=== PATIENT | male | born 1980 | race Caucasian/White ===

== ENCOUNTER 2019-07-22 11:48 | Inpatient (IN) | payer OTHER, SELFPAY ==
[2019-07-10 13:55] VITALS: BMI 41.1
[2019-07-22] VITALS (19 sets, daily range): BP systolic 102–161; BP diastolic 56–106; PULSE 9–109; RESP 8–20; TEMP 35.6–36.6; O2SAT 85–100; BMI 40.8
--- NOTE | 2019-07-22 | DI.RAD.S_ITS ---
PROCEDURE: XR CERVICAL SPINE 2V OR 3V INDICATIONS: C4-5, C5-6, C6-7 ACDF WITH ANTERIOR INSTRUMENTATION TECHNIQUE: 3 operative view(s) of the cervical spine were acquired. COMPARISON: None. FINDINGS: Preoperative films demonstrate performance of ACDF at C4-C7 with anterior plate and screw fixation and interbody bone graft material placement. IMPRESSION: ACDF at C4-C7 Dictated by: Adan Bates M.D. on 07/22/2019 at 17:00 Approved by: Adan Bates M.D. on 07/22/2019 at 17:01
--- NOTE | 2019-07-22 12:37 | PM.PREOP ---
Pre-operative Note Interval Note History & Physical reviewed/Exam performed by Physician: Yes Changes to H&P: No
[2019-07-22] MEDS: LACTATED RINGERS 1,000 ML 42 ML IV ×2 (12:51→15:22)
[2019-07-22] MEDS: CEFAZOLIN 2 GM/100 ML FROZ.PIGGY IV ×2 (13:10→20:53)
--- NOTE | 2019-07-22 14:03 | SUR.OPER ---
Supine, head on gel donut. Arms padded with gel pads, tucked at sides, towel roll under shoulders. Safety belt at thigh. Legs uncrossed.
[2019-07-22] MEDS: ACETAMINOPHEN IV 1,000 MG/100 ML VIAL 400 MG IV (15:17)
[2019-07-22] MEDS: BUPIVACAINE 0.25% W/ EPI 30 ML VIAL INJ (16:08)
--- NOTE | 2019-07-22 17:01 | P.OP_ITS ---
Operative Date/Time/Diagnoses Date of procedure: 07/22/19 Time of procedure: 14:01 Pre-op diagnosis: 1. C4-5, C5-6,C6-7 spinal stenosis 2. C4-5, C5-6, C6-7 spondylosis with radiculopathy Post-op diagnosis: same Procedure & Clinicians Procedure: 1. C4-5 C5-6 C6-7 anterior cervical diskectomy and fusion 2. C4-5 C5-6 C6-7 anterior interbody cage placement 3. C4-5 C5-6 C6-7 anterior instrumentation with plate and screw placement in C4-C5-C6 and C7 vertebrae 4. Utilization of microsurgical technique and operating microscope Same procedure as scheduled: Yes Indications: Patient has been having chronic neck pain and worsening cervical radiculopathy. Patient failed multiple conservative management with worsening pain weakness and numbness in her upper extremity. Patient has been having difficulty performing activity of daily living. After discussing risks benefits of treatment options, patient elected proceed with surgery. Surgeon: Violeta Haro Network Support: Liliana Weinstein Click Yes if Unassisted: No Anesthesia Type: General Operative Notes Closure Type: primary Specimen(s): none sent Prosthetic devices, grafts, tissues, transplants, or devices: GLobus extend plate, PEEK cages Estimated Blood Loss (mL): 100 Blood products transfused: none Procedure in detail: Patient was seen in the preoperative area. Risks and benefits of the surgery was discussed with the patient. Operative consent was obtained and placed in the chart. Patient was then taken to the operative room. Prophylactic antibiotic was given less than 0.5 hr prior to skin incision. General anesthesia was administered. Patient was placed into a supine position on her radiolucent table. Bilateral shoulders were taped down to allow proper C- arm imaging. Anterior cervical area was prepped and draped in a sterile fashion. Time-out was performed at this time. Using lateral C-arm imaging, the level between C4 and C7 was identified and marked on patient's neck. A oblique incision from midline towards medial border of sternocleidomastoid muscle was made. The platysma muscle was incised in line with skin incision. Metzenbaum scissor was used to develop the plane between the medial border of sternocleidomastoid d and the strap muscles medially. The carotid sheath and its contents were identified and protected behind the hand- held retractor during the entire case. The plane between the carotid sheath and strap muscles was developed with Metzenbaum scissors. Dissection was made down to the level of the anterior cervical fascia. Longus colli muscle was incised on the anterior aspect of vertebral bodies bilaterally from C4-C7. Spinal needle was placed into the C4-5 disc space and confirmed with lateral C-arm imaging. Using microsurgical technique and operative microscope, anterior cervical diskectomy was performed at C4-5 C5-6 and C6-7 level. This was done by removing the disc material, removing the anterior and posterior osteophytes posterior longitudinal ligaments along with performing bilateral foraminotomies at all 3 levels. Patient was found to have severe central and foraminal stenosis at all 3 levels. Patient's stenosis was fully decompressed after decompression was completed. After the diskectomy was completed, 3 anterior interbody cages were obtained. The cages were packed with globus via cell bone grafting material. One cage each along with the bone grafting material was then packed into the interbody spaces from C4-C7 with one cage into each interbody level. After the cages were placed, the anterior cervical plate was stabilized to the C4-C7 vertebrae using 2 screws at each each level. Total 8 screws were placed. After confirming placement of the hardware with AP and lateral C-arm imaging, the screws were locked into the plate using the locking mechanism and torque limiting screwdriver. After the hardware was placed and confirmed with AP and lateral C-arm imaging, the wound was irrigated with sterile normal saline. The platysma muscle and the subcutaneous tissue was closed with 2-0 Vicryl. The skin was closed with 4-0 Monocryl and Steri-Strips. Patient tolerated the procedure well. Patient was transferred recovery room in stable condition. There were no complications. Complications: none Post-operative Condition: stable Disposition: PACU Plan for aftercare: Admit to inpatient [facility]
--- NOTE | 2019-07-22 17:52 | SUR.PHASEI ---
Patient arrived in PACU w/LMA in. Drsg CDI. Patient requiring 02 viz facemask to maintain 02 > 93
[2019-07-22] MEDS: HYDROMORPHONE 2 MG INJ 0.5 MG IV ×2 (18:08→18:32)
--- NOTE | 2019-07-22 18:11 | SUR.PHASEI ---
Gave pain medication for 9/10 pain.
[2019-07-22] MEDS: LORazepam 2 MG/ML INJ 0.25 MG IV (18:35)
--- NOTE | 2019-07-22 19:05 | SUR.PHASEI ---
Patient is complaining of 10/10 pain, but is refusing po and IV pain medication. Patient is on 3/4 liters 02 via [place]. Shayang CDI. Patient dozing intermittently. Diaphoretic-states he is always diaphoretic. Refusing ice chips.
[2019-07-22] MEDS: SODIUM CHLORIDE 0.9% 1,000 ML 100 ML IV (20:48)
[2019-07-22] MEDS: GABAPENTIN 400 MG CAPSULE 800 MG PO (20:53)
[2019-07-22] MEDS: SENNOSIDES 8.6 MG TABLET PO (20:53)
[2019-07-22] MEDS: METFORMIN HCL 500 MG TABLET 1000 MG PO (20:54)
[2019-07-22] MEDS: carvediloL 3.125 MG TABLET PO (21:16)
[2019-07-22] MEDS: TRAMADOL 50 MG TABLET PO (22:34)
--- NOTE | 2019-07-22 23:09 | PC.NURSE ---
Evening Shift Note- Patient arrived to room via bed from PACU. Patient oriented to bed and bed controls, room, phone, lights, menu, and call ny/tv remote. Discussed pain medications with patient. Patient states he does not like Oxycodone. Called switchboard and control room operator ortho surgeon and recieved a new order for Ultram PO PRN QID. Patient given first Ultram does, patient tolerated with no s/s of ASE noted. Dressing to neck C/D/I, soft collar in place. Safety measures in place. Patient agrees to call for assistance. call ny and phone within reach. Will continue to monitor.
[2019-07-23] VITALS: BP 147/97; PULSE 114; RESP 16; TEMP 36.5; O2SAT 95
[2019-07-23] MEDS: TRAMADOL 50 MG TABLET PO ×2 (02:25→07:51)
[2019-07-23 03:48] VITALS: BP 156/96; PULSE 120; RESP 18; TEMP 36.7; O2SAT 97
[2019-07-23 04:47] VITALS: BP 150/89; PULSE 122; RESP 18; O2SAT 98
[2019-07-23] MEDS: CEFAZOLIN 2 GM/100 ML FROZ.PIGGY IV (05:28)
[2019-07-23 07:40] VITALS: BP 159/87; PULSE 126; RESP 18; TEMP 36.9; O2SAT 98
[2019-07-23] MEDS: METFORMIN HCL 500 MG TABLET 1000 MG PO (07:51)
[2019-07-23] MEDS: INSULIN ASPART 100 UNIT/ML INSULN PEN 20 UNIT SUBCUT ×2 (08:27→11:47)
[2019-07-23] MEDS: DOCUSATE 100 MG CAPSULE PO (08:32)
[2019-07-23] MEDS: GABAPENTIN 400 MG CAPSULE 800 MG PO (08:32)
[2019-07-23] MEDS: ATORVASTATIN 20 MG TABLET 80 MG PO (08:32)
[2019-07-23] MEDS: CYCLOBENZAPRINE 5 MG TABLET PO (08:34)
--- NOTE | 2019-07-23 08:48 | CM.IDA ---
Discharge Planning/Care Management CM Discharge Assessment Start: 07/23/19 08:46 Freq: Status: Active Protocol: Document 07/23/19 08:46 [place] (Rec: 07/23/19 08:48 [place] [id number]) Discharge Planning Assessment Assigned Meeting Specialist ELMER Garner DPOA/Assigned Designee Name Magi Garza, spouse Contact Information [phone] Advance Directives? No Advance Directives on File No History Provided By Patient,Significant Other, Medical Record Prior Living Arrangements Apartment/Condo Household Members spouse Independent with ADL's Yes Is patient alert and oriented? Yes Caregiver for Another Yes: For his mom, per notes Barriers to Discharge No Comment Pending progress with therapy team Discharge Plan Home Transportation Arrangement Family Referrals Initiated None needed Additional Comment DC needs are Pending work w/ therapy team and further assessment Review Status In Process
[2019-07-23] MEDS: carvediloL 3.125 MG TABLET PO (09:22)
--- NOTE | 2019-07-23 09:36 | PT.IIE ---
I dertify that I have reviewed this documentation and is involved with this pt's care. Current Diagnoses Other spondylosis with radiculopathy, cervical region (07/22/19) Spinal stenosis, cervical region (07/22/19) Surgery Performed Operation Date: 07/22/19 13:45 Actual Procedures p c4-5,C5-6,C6-7 ACDF w/ anterior insrtumentaion - Violeta Haro MD Surgical History (Last Updated 07/10/19 @ 14:28 by Lisandra Jean RN) History of total knee arthroplasty (Acute) Hx of toe surgery (Acute) Medical History (Last Updated 07/10/19 @ 14:28 by Lisandra Jean RN) Arthritis (Acute) Asthma (Acute) Diabetes (Acute) Eczema (Acute) HLD (hyperlipidemia) (Acute) HTN (hypertension) (Acute) JOHN PAUL on CPAP (Acute) RBBB (right bundle branch block) (Acute) Physical Therapy Inpatient Evaluation/Re-Eval M1 PT/OT-IP Prior Functional Status Start: 07/23/19 11:34 Freq: NEEDED Status: Active Protocol: Document 07/23/19 09:36 MT (Rec: 07/23/19 12:22 MT [id number]) Medical Review Prior Functional Status Medical History Reviewed Yes Diet/Fluid Consistency Regular Communication Pt able to make needs known Mobility and Gait Pt was fully independent with all gait and mobility prior to surgery and able to walk all distances. he did not use an AD prior to surgery. He did utilize the shower chair for his showers, but it was out of convenience and not necessity Activities of Daily Living and IADL's Pt was independent with all of his ADL's Social History Household Members spouse Living Arrangements Apartment/Condo Number of Floors (Floors) One Floor Number of Stairs To Enter/Railing? Pt lives in a one stroy apartment and there are no stairs to enter apartment Home Environment High Toilet,Walk in Shower, Built-In Shower Seat Home Equipment Straight Cane,Raised Toilet Seat Without Armrests,Shower Seat with Backrest,Hand Held Shower,Grab Bars Near Toilet, Grab Bars In Shower Additional Social History Comment Pt has a bed that can elevate the HOB, but can only do so manually and pt did not utilize that feature prior to surgery. Pt is employed as a pharmacy student. M2 PT-IP Current Condition Start: 07/23/19 11:34 Freq: NEEDED Status: Active Protocol: Document 07/23/19 09:36 MT (Rec: 07/23/19 12:22 MT [email or web address]) Physical Therapy Current Condition Current Condition Evaluation Date 07/23/19 Treatment Diagnosis reduced mobility secondary to cervical fusion surgery Onset Date 07/22/19 Precautions Cervical Spine Precautions Soft Collar for Comfort,No Heavy Lifting,Log Roll Brace soft cervical collar Weight Bearing Status Allowed Weight Bearing Amount (enter % Pt has no LE WB restrictions. or #) (%) Pt is not supposed to strain or do large movements with his neck, strain his neck, or lift objects M3 PT-IP Subjective Start: 07/23/19 11:34 Freq: NEEDED Status: Active Protocol: Document 07/23/19 09:36 MT (Rec: 07/23/19 12:22 MT [email or web address]) Subjective Physical Therapy Visit Type Type Initial Evaluation Visit Start Time 09:36 Visit Stop Time 10:03 Total Visit Minutes 27 Number of [employer] Visits 0 Physical Therapy Visit Comments Patient Comments Pt was agreeable to particiapte in physical therapy evaluation Therapy Pain Assessment Pain When Pain Assessed At Rest Pain Present Pain Present Pain Reported Location neck Intensity 8 Scale Used Numeric (1 - 10) Description Aching,Sharp Pain Behaviors Facial Grimacing,Restlessness, Wincing Pain Management Techniques Apply Cold,Re-positioning, Timing of Activity with Medications M4 PT-IP Mobility and Gait Start: 07/23/19 11:34 Freq: NEEDED Status: Active Protocol: Document 07/23/19 09:36 MT (Rec: 07/23/19 12:22 MT [email or web address]) PT-Bed Mobility Assessment Rolling Type of Rolling Log Rolling,Roll to Right Level of Assist Contact Guard Assistance,1 Person Assistance Supine to Sit Supine to Sit Contact Guard Assistance,1 Person Assistance Sit to Supine Sit to Supine Contact Guard Assistance,1 Person Assistance Scooting Scooting to Edge of Bed Independent Scooting Up and Down in Bed Independent PT-Transfer Assessment Sit to and From Stand Sit to and from Stand Contact Guard Assistance,1 Person Assistance Equipment Transfer Assistive Device None,Gait Belt,Straight Cane, Front Wheeled Walker Orthotic/Prosthetic Devices or Brace: Yes Transfers Transfer Destination Bed,Chair Transfer Technique Stand Step Pivot Transfer Ability Level of Assist Contact Guard Assistance,1 Person Assistance Comments Mobility Comments Pt's BP was taken in sitting prior to movment and was first recorded to be 146/100. Pt was then positioned with their arm elevated to be in a more relaxed position and BP went to 143/91, 128 HR, and 95% O2. Pt reported that he had just recently been gien medications for his BP. Pt was educated on the log rolling technique and was able to perform the log roll technique for supine <> sit with CGA. with pt's first attempt of sit to supine, he was not high enough in bed for his head to reach the pillows , and so reattempted sit to supine after cooting up in bed . Pt preformed sit to stand transfer using FWW at first, but was steady and performed another stand step pivot transfer without and AD. Pt mentioned that he would have access to a SPC if he needed at home, and so stand step pivot transfer was also assessed using SPC. Pt was CGA with all transfers. Gait Assessment Gait Gait Assistance Required: Standby Assistance,Contact Guard Assist Distance (Feet) 250 Able to Maintain Weight Bearing Status Yes During Gait Assistive Devices Assistive Device Gait Belt,Straight Cane,Front Wheeled Walker Orthotic/Prosthetic Devices or Brace: Yes Gait Deviations General Gait Pattern Antalgic,Decreased Stride Length,Decreased Feet Clearance,Wide Based Gait Factors Limiting Gait Function Factors Limiting Gait Function Decreased Activity Tolerance, Pain Comments Gait Comments Pt ambulated with SBA using 2WW 30 ft in room. Pt was steady and then ambulated without an AD for 250ft with CGA and some cueing for maintaining cervical precautions of not turning head too far to look at something. Pt demonstrates decreased activity tolerance and stability with longer distances and would benefit from use of an AD for instances of increased distance. Pt's also mentioned that he would have access to a cane if he absolutely needed, and so pt then ambulated 30 ft with SPC CGA and cueing for proper sequencing of AD with gait. PT-Balance Assessment Sitting Balance and Reactions Static Sitting Balance Ability Normal Dynamic Sitting Balance Ability Normal Standing Balance and Reactions Static Standing Balance Ability Normal Dynamic Standing Balance Ability Good M5 PT-IP Objective Assessments Start: 07/23/19 11:34 Freq: NEEDED Status: Active Protocol: Document 07/23/19 09:36 MT (Rec: 07/23/19 12:22 MT [email or web address]) Orientation Orientation/Cognition Level of Alertness Alert Orientation Name,Place,Situation Language Function Ability No Deficits Noted Safety Awareness Understands Safety Issues Memory Description No Deficits Noted Gross Range of Motion Lower Extremity ROM Assessment Within Functional Limits Strength Lower Extremity Strength Assessment Within Functional Limits Hip 4+/5 hip flexion bilaterally Knee 5/5 knee ext/flexion Ankle 5/5 ankle DF/PF Sensation Assessment Comments Sensation Comments When asked about sensation, pt reported that he feels like he has full sensation but is a bit shakey from the pain Muscle Tone Muscle Tone WNL Yes M6 PT-IP Treatment Start: 07/23/19 11:34 Freq: NEEDED Status: Active Protocol: Document 07/23/19 09:36 MT (Rec: 07/23/19 12:22 MT [email or web address]) Physical Therapy Treatment Education Education Provided Precautions,Post-Op Packet, Safety Brace Education [place],Patient, Caregiver M7 PT-IP Assessment and Plan Start: 07/23/19 11:34 Freq: NEEDED Status: Active Protocol: Document 07/23/19 09:36 MT (Rec: 07/23/19 12:22 MT [email or web address]) PT Summary Assessment and Plan Potential Rehabilitation Potential Good Status of Condition at Evaluation Evolving Summary Impairments Pain,Bed Mobility,Gait, Activity Tolerance Assessment Summary Pt presents to PT following cervical fusion surgery. He has high levels of pain and reduced mobility. Pt was educated on his precautions and post-op guidelines and was edcuated on log rolling technique for bed mobility. Pt was able to perform his bed mobility with CGA and properly implemented log rolling. Pt performed stand pivot transfer with walker, cane, and no AD with CGA. Pt ambulated at first with a walker and was deemed safe. Pt was then assessed for ambulation without an AD. Pt ambulated 250ft with CGA without any AD. Pt has decreased activtiy tolerance and said he would have access to a cane and demonstrated safe use with a cane. PT recommended to him that he use the cane for longer distances . Pt lives in an apratment with his mother and who would be able to assist and take care of him following discharge. Pt and were educated on how to properly place and adjust collar with some cueing for ensuring proper placement. Due to his ability to ambulate and adhere to his precautions with bed mobility safely, he would be suitable for dsicharge location of home with assistance. Goals Bed Mobility Goal Independent Transfer Goal Independent Gait Goal Independent Gait Distance 500 Days to Meet Goals 5 Frequency of Treatment Frequency Of Treatment Twice a Day Treatment Plan Physical Therapy Treatment Plan Bed Mobility Training,Gait Training,Post Op Education, Discharge Planning,Hot or Cold Pack Recommendations To Nursing Amount of Assist Needed 1 Person Assist Discharge Recommendations PT Discharge Recommendations Home with Assistance
[2019-07-23 11:32] VITALS: BP 162/104; PULSE 121; RESP 18; TEMP 36.8; O2SAT 95
[2019-07-23] MEDS: HYDROCODONE/ACET 5/325 TABLET 2 TAB PO (11:41)
[2019-07-23] MEDS: LISINOPRIL 20 MG TABLET PO (11:42)
[2019-07-23] MEDS: SODIUM CHLORIDE 0.9% FLUSH 10 ML IV (11:42)
[2019-07-23] MEDS: INSULIN ASPART 100 UNIT/ML INSULN PEN SUBCUT (11:47)
--- NOTE | 2019-07-23 12:40 | P.DS_ITS ---
History of Present Illness History of Present Illness Date Patient Seen: 07/23/19 Time Patient Seen: 12:40 Chief complaint: [id number] Narrative: Patient has been having chronic neck pain and worsening cervical radiculopathy. Patient failed multiple conservative management with worsening pain weakness and numbness in her upper extremity. Patient has been having difficulty performing activity of daily living. After discussing risks benefits of treatment options, patient elected proceed with surgery. Post op day 1 s/p ACDF w Dr. Haro. No acute events overnight. Patient complains of pain in incision site, shoulders and neck. Rates 02/23. Pain managed with norco. Patient refuses stronger pain medication because of personal beliefs regarding addiction. Patient admits to numbness in feet R>L. Patient denies fever, chills, tingling, chest pain, nausea, vomiting, shortness of breath. Discharge Providers Provider Date of admission: 07/22/19 11:48 Discharge Date: 07/23/19 Consults: 07/22/19 12:50 Consult to Respiratory Therapy Evaluate & Treat Comment: Physician Instructions: Evaluate and treat 07/22/19 20:39 Consult to Occupational Therapy Evaluate & Treat Comment: Physician Instructions: Evaluate and treat Consult to Physical Therapy Evaluate & Treat Comment: Physician Instructions: Evaluate and Treat Discharge provider: Herve Marrero PA-C Summary Hospital Course Discharge Diagnosis: s/p 1. C4-5 C5-6 C6-7 anterior cervical diskectomy and fusion 2. C4-5 C5-6 C6-7 anterior interbody cage placement 3. C4-5 C5-6 C6-7 anterior instrumentation with plate and screw placement in C4-C5-C6 and C7 vertebrae 4. Utilization of microsurgical technique and operating microscope arthritis asthma diabetes eczema hyperlipidemia JOHN PAUL on CPAP right bundle branch block Hospital Course: Patient admitted to hospital s/p ACDF with Dr. Haro. Post op day 1 patient was ready for discharge home. Hospital course was unremarkable. Patient will have support at home from . Patient mobilizing with PT/OT prior to discharge. Patient voiding without difficulty or assistance. Patient given prescription for norco. Status at Discharge Cognitive/behavioral status at discharge: oriented Functional status at discharge: uses cane/walker Overall status at discharge: patient is progressing back to baseline Time Spent with Patient Time spent: Less than 30 minutes Exam Vital Signs (past 8 hours): - 07/23/19 04:47 07/23/19 07:40 07/23/19 11:32 Temperature 98.4 F 98.2 F Pulse Rate 122 H 126 H 121 H Respiratory Rate 18 18 18 Blood Pressure 150/89 H 159/87 H 162/104 H Pulse Oximetry 98 98 95 Oxygen Delivery Method Nasal Cannula Oxygen Flow Rate 0 Narrative Exam Narrative: Patient sitting up in chair, in no apparent distress. A&Ox3. Dressing intact and in place, with shadow drainage. Sensory function grossly intact to light touch in LE/UE. Patient able to actively plantar flex/dorsi flex bl. Chief Knowledge Officer strength 5/5. Radial pulses 2+ bl. Discharge Plan Discharge Plan Patient Disposition: Home Discharge Med Rec/Prescriptions Prescriptions: New hydrocodone-acetaminophen [Vowinckel] 5-325 mg tablet 1 tab PO Q4-6H PRN (Reason: pain (scale score 7-10)) Qty: 60 RF: 0 Continued cyclobenzaprine 10 mg Tablet 10 mg PO BID RF: 0 atorvastatin 80 mg Tablet 80 mg PO DAILY RF: 0 lisinopril 20 mg Tablet 20 mg PO DAILY RF: 0 gabapentin 800 mg Tablet 800 mg PO BID RF: 0 metformin 1,000 mg Tablet 1,000 mg PO BID RF: 0 Novolog Flexpen U-100 Insulin 100 unit/mL (3 mL) Insulin Pen 20 - 25 unit SUBCUT TID RF: 0 Tresiba FlexTouch U-100 100 unit/mL (3 mL) Insulin Pen 35 unit SUBCUT BEDTIME RF: 0 Jardiance 25 mg Tablet 25 mg PO DAILY RF: 0 Ozempic 0.25 mg or 0.5 mg(2 mg/1.5 mL) Pen Injector 0.5 mg SUBCUT QWEEK RF: 0 carvedilol 3.125 mg Tablet 3.125 mg PO BID RF: 0 Discontinued naproxen 500 mg Tablet 500 mg PO DAILY PRN (Reason: Pain) RF: 0 Follow up/Referrals: Violeta Haro MD [Physician] - Provider Discharge Instructions Diet: Diet as Tolerated Activity: No excessive bending, lifting, or twisting. Skin/Wound/Dressing Care Report to your healthcare provider any signs of infection, such as:: chills, fever and increased pain Dressing: Leave in place until appointment Visit Report/Discharge Packet Instructions: DI for Anterior Cervical Discectomy and Fusion, Hydrocodone/Acetaminophen (By mouth) Stand Alone Forms: Surgery Discharge Visit Report Forms: Patient Portal/API, Stroke Signs & Symptoms Discharges patient from system. Discharge Date/Time: 07/23/19 14:36
--- NOTE | 2019-07-23 12:51 | PC.NURSE ---
Pt in pain this morning, given tramadol and flexaril with little relief. Pt was not due for any other pain medications for some time. So warm blankets and ice packs used and switched out every 15minutes, this did bring patient some relief from pain. HR increases with pain tgo 120 and bp was elevated. Ortho PA is aware and they are going to discharge him home. He was given vicodin 2 tabs about and hour ago and he states that his pain level is better controlled. The dressing to his anterior neck will be changed before he discharges home. Speech therapist in seeing patient now and then he will be discharged.
--- NOTE | 2019-07-23 13:03 | SLP.IPNOTE ---
Performed swallow screen. Pt c/o pain and frequent coughing with oral intake. Observed swallow with thin water, NTL and applesauce. Pt coughed immediately with thin liquid. No overt s/sx of aspiration with NTL and applesauce. Educated pt/ orally and in writing RE potential swallow and voice problems after ACDF. Recommended NTL for remainder of the week to reduce risk of aspiration. Anticipate pt's symptoms will resolve as he heals and do not warrant continued hospital stay. However, he was encouraged to inform MD and seek MEDIA RECONCILIATION SPECIALIST assistance if symptoms persist or worsen.
== END 2019-07-23 14:36 | disposition home or self-care (01) | DRG 472 ==
PROVIDERS: Admitting Provider Orthopaedic Surgery Orthopaedic Surgery of the Spine; Visit Provider Orthopaedic Surgery Orthopaedic Surgery of the Spine
PROC: 0RG20A0 Fusion of 2 or more Cervical Vertebral Joints with Interbody Fusion Device, Anterior Approach, Anterior Column, Open Approach (ICD-10-PCS; principal; 2019-07-22 13:45)
DX: M48.02 Spinal stenosis, cervical region (principal); Z68.41 Body mass index [BMI] 40.0-44.9, adult; D68.9 Coagulation defect, unspecified; M47.22 Other spondylosis with radiculopathy, cervical region; E66.01 Morbid (severe) obesity due to excess calories; I10 Essential (primary) hypertension; E78.5 Hyperlipidemia, unspecified; G47.33 Obstructive sleep apnea (adult) (pediatric); M79.7 Fibromyalgia; I25.10 Atherosclerotic heart disease of native coronary artery without angina pectoris; E11.65 Type 2 diabetes mellitus with hyperglycemia; I45.10 Unspecified right bundle-branch block; J44.9 Chronic obstructive pulmonary disease, unspecified; Z79.4 Long term (current) use of insulin
CPT/HCPCS: 72040; 76000; 82962; 94762; 97162; C1776; J0131; J0690; J1170; J2060; J2310; J2704; J3010